=== PATIENT | male | born 2000 | race Caucasian/White ===

== ENCOUNTER 2018-06-11 18:11 | Emergency (ER) | payer BC ==
[~2018-06-11] VITALS: Ht 182.9 cm; Wt 104.3 kg
[2018-06-11] MEDS ORDERED: IBUPROFEN 600600 M1 PO (19:01)
[2018-06-11 19:17] VITALS: BP 122/75
== END 2018-06-11 19:17 | disposition home or self-care (01) ==
LOC: M.ERS 18:11
DX: S63.592A Other specified sprain of left wrist, initial encounter (principal); W00.0XXA Fall on same level due to ice and snow, initial encounter; Y93.89 Activity, other specified; Y92.89 Other specified places as the place of occurrence of the external cause; Y99.8 Other external cause status